=== PATIENT | female | born 1985 | race Asian ===

== ENCOUNTER 2022-11-11 17:17 | Emergency (ER) | payer OTHER ==
[~2022-11-11] VITALS: Ht 175.3 cm; Wt 97.5 kg
[2022-11-11 18:00] LABS: PLATELET COUNT 300 K/uL (152-353)
[2022-11-11 18:06] LABS: POTASSIUM 3.4 mmol/L (3.6-5.2)
[2022-11-11 18:45] VITALS: BP 160/98; TEMP 98
== END 2022-11-11 18:54 | disposition home or self-care (01) ==
LOC: ED 17:17
PROVIDERS: Emergency Medicine
DX: R31.9 Hematuria, unspecified (principal); Z87.442 Personal history of urinary calculi; I10 Essential (primary) hypertension
CPT/HCPCS: 80048; 81000; 85027; 99284; J1170; J2405